=== PATIENT | female | born 1990 | race Caucasian/White ===

== ENCOUNTER 2016-09-08 13:35 | Emergency (ER) | payer MEDICAID, OTHER ==
[~2016-09-08] VITALS: Ht 160 cm; Wt 58.0 kg
[2016-09-08] MEDS ORDERED: METOCLOPRAMIDE HCL 10MG/2ML VIAL IM ONE (14:45)
[2016-09-08] MEDS ORDERED: ACETAMINOPHEN WITH CODEINE 300/30MG TABLET PO ONE (14:45)
[2016-09-08] MEDS ORDERED: KETOROLAC 60MG/2ML VIAL IM ONE (14:45)
[2016-09-08 15:03] VITALS: BP 114/74
== END 2016-09-08 16:07 | disposition home or self-care (01) ==
LOC: ER 13:36
DX: S16.1XXA Strain of muscle, fascia and tendon at neck level, initial encounter (principal); S09.8XXA Other specified injuries of head, initial encounter; V49.49XA Driver injured in collision with other motor vehicles in traffic accident, initial encounter; Y93.89 Activity, other specified; Y92.488 Other paved roadways as the place of occurrence of the external cause
CPT/HCPCS: 70450; 72125; 81025; 96372; 99284; J1885